=== PATIENT | male | born 1965 | race African-American/Black ===

== ENCOUNTER 2016-07-13 00:55 | Inpatient (IN) | payer OTHER ==
[2016-07-12 22:22] LABS: URINE SOURCE CLEAN CATCH
[2016-07-12 22:41] LABS: URINE APPEARANCE CLEAR; URINE BILIRUBIN NEG (NEG); URINE BLOOD NEG (NEG); URINE COLOR YELLOW; URINE GLUCOSE NEG (NEG); URINE KETONE NEG (NEG); URINE LEUKOCYTE ESTERASE NEG (NEG); URINE NITRATE NEG (NEG); URINE PROTEIN NEG (NEG); URINE UROBILINOGEN 0.2 MG/DL (NEG)
[2016-07-12 22:46] LABS: CULTURE INDICATED? NO
--- NOTE | ~2016-07-13 | CT2 ---
[facility] A Service of [facility] & [facility] RADIOLOGY TEXT RESULTS PATIENT: COLLEEN KOENIG LOCATION: C3A 328-01 : [birth year] UNIT #: [id number] AGE: [address]: Alis Erazo MD SEX: M ORDER DR: [id number] [facility] [address]. [place], [place] [address] [id number] MR#: [id number] Acc #: [id number] NAME: COLLEEN KOENIG : 1965 SEX: M STUDY DATE/TIME: 07/13/2016 3:22 UNIT: CEDOF ROOM: 77588 STUDY DESCRIPTION: CT Abd and Pelv W Cont Attending Physician: Chaitanya Patton M.D. Ordering Physician: Raphael Turner M.D. Primary Care Physician: Primary Care Physician No MEDICAL IMAGING REPORT This report is preliminary unless electronic signature is present EXAM CT abdomen and pelvis with IV contrast COMPARISON: August 13, 2015. HISTORY 50-year-old male with sharp upper abdominal pain, nausea, emesis and diarrhea for two days. The CT exam was performed with one or more of the following radiation dose reduction techniques: automatic exposure control, adjustment of mA and/or kV according to patient size, and iterative reconstruction. FINDINGS Axial CT imaging of the abdomen and pelvis was performed after administration of 100 mL of Isovue-370. Coronal and sagittal reformats were constructed. Small posterior disc protrusions at L4-5 and L5-S1. No acute fractures or suspicious osseous lesions. Top normal heart size. No acute findings in the imaged lower chest. Findings suggestive of hepatic steatosis. Hepatomegaly with hepatic length of 19.5 cm. Prior cholecystectomy. There is edema and diffuse fat stranding along the course of the pancreas with fat stranding surrounding the second portion of the duodenum as well as the third portion of the duodenum, without appreciable thickening of this bowel segment. No convincing evidence of abscess. Adrenal glands, spleen, and kidneys are without parenchymal lesions. There is questionable multifocal cortical scarring of the kidneys. No hydronephrosis or hydroureter. No renal or ureteral calculus. Urinary bladder is unremarkable. There is minimal central prostatic calcifications, nonspecific finding, perhaps related to STS. [facility] A Service of [facility] & [facility] RADIOLOGY TEXT RESULTS PATIENT: COLLEEN KOENIG LOCATION: C3A 328-01 : 65 UNIT #: [id number] AGE: [address]: Alis Erazo MD SEX: M ORDER DR: a remote prostatitis. No evidence of bowel obstruction. Appendix is normal. No pneumoperitoneum or layering free fluid. Abdominal aorta is normal in course and caliber, patency of its main branches. No evidence of venous thrombosis. IMPRESSION 1. Findings of acute pancreatitis. No evidence of abscess or other complication. 2. Hepatomegaly with hepatic steatosis. Prior cholecystectomy. 3. Small posterior disc protrusions at L4-L5 and L5-S1. 1. Dictated by... Charlie Harmon M.D. THIS IS AN ELECTRONICALLY VERIFIED REPORT Charlie Harmon M.D. at 07/19/2016 3:45 PM Lashell TD: 07/13/2016 08:29 JOB #: [id number] MEDICAL IMAGING REPORT COPY
--- NOTE | ~2016-07-13 | EKG ---
PATIENT: COLLEEN KOENIG UNIT #: [id number] Ventricular Rate: 64 BPM Atrial Rate: 64 BPM P-R Interval: 140 ms QRS Duration: 102 ms Q-T Interval: 412 ms QTC Calculation(Bezet): 425 ms P [place]: 49 degrees Calculated R [place]: 3 degrees Calculated T [place]: -3 degrees Diagnosis Line: Normal sinus rhythm Diagnosis Line: Non Specific ST Changes- Abnormality Diagnosis Line: Abnormal ECG Diagnosis Line: When compared with ECG of 25-APR-2015 10:31, Diagnosis Line: T wave inversion no longer evident in Lateral Diagnosis Line: leads Diagnosis Line: Confirmed by ANDREA DORANTES MD ([id number]) on Diagnosis Line: 07/13/2016 12:01:09 PM INTERPRETING : KENDRICK
--- NOTE | ~2016-07-13 | HP ---
Unit #: [id number] #: [id number] Patient: COLLEEN KOENIG [id number] [address] [place], [place] [address] [id number] I MR#: [id number] NAME: COLLEEN KOENIG ROOM: 65601 Age: 50 Sex: M Admission Date: 07/13/2016 : 1965 Attending Physician: Alis Erazo M.D. Primary Care Physician: No Primary Care Physician HISTORY AND PHYSICAL REASON FOR ADMISSION Abdominal pain. Intractable nausea and vomiting times four days. HISTORY OF PRESENT ILLNESS The patient is a 50-year-old male with an underlying history of alcohol abuse, hypertension, as well as recurrent hospital admissions secondary to pancreatitis. He presents secondary to intractable nausea, vomiting and abdominal pain for the past four to five days. He states that he was otherwise in his usual state of health approximately a week ago, when he began developing acute symptoms. He also states to me that he has not drank any alcohol in the past seven days. He in his own recollection, states that he is regularly taking his blood pressure medications, including Norvasc and hydralazine on a regular basis, although his systolic has consistently remained greater than 180 to 190 throughout his emergency room course thus far. He does not check his blood pressure at home. PAST MEDICAL HISTORY 1. Hospital admission in 2014 secondary to similar circumstance. 2. Alcoholic pancreatitis. 3. Hypertension. 4. Cholecystectomy in the past. 5. Chronic alcohol abuse. 6. Tobacco abuse. PAST SURGICAL HISTORY Cholecystectomy. SOCIAL HISTORY The patient resides at home alone. Positive tobacco use, one pack of cigarettes per day. Positive alcohol consumption. Works in heavy machinery. FAMILY HISTORY Mother endstage renal disease, dialysis. ALLERGIES Per report Dilaudid causes hallucinations. CURRENT HOME MEDICATIONS Medication reconciliation currently being verified, including Hydralazine Unit #: [id number] #: [id number] Patient: COLLEEN KOENIG and Arnel I believe. REVIEW OF SYSTEMS Please see history of present illness. Twelve points otherwise negative except for those positives noted in the history of present illness. PHYSICAL EXAMINATION GENERAL: The patient is a 50-year-old male lying in no acute distress. VITALS: At the time of admission, temperature 97.9, pulse 79, respiratory rate 16, blood pressure 170/110. HEENT: Atraumatic, normocephalic. Ears, tympanic membranes do not reveal any erythema or injection. NECK: Supple. LUNGS: Clear. HEART: S1 and S2 without murmur. ABDOMEN: Distension noted. Tenderness to palpation in the epigastric area. No rebound. No guarding. EXTREMITIES: Lower extremities no evidence of lower extremity edema. No calf tenderness. NEUROLOGIC: The patient is alert and oriented times three. He does have a slightly slower affect. He has just received Dilaudid per protocol while here in the emergency room. DIAGNOSTIC STUDIES LABORATORY: Initial studies include troponin times two which is negative. Lipase level 286, potassium 3.3, LFTs are elevated. CBC shows white blood cell count 1.9, hemoglobin 14.6. EMERGENCY ROOM COURSE The patient has received hydralazine p.o., clonidine p.o. 0.2 mg as well as hydralazine 10 mg IV. He has also received morphine, Zofran and Dilaudid. It should be noted that Dilaudid is a questionable allergy as I see it on some previous records. However, he denies, but I do see some reports of hallucinations. He states that it is the only thing that does help him and, therefore, that was administered previously. INITIAL ADMISSION DIAGNOSES 1. Acute pancreatitis, likely secondary to alcohol consumption. 2. Alcohol abuse. 3. Intractable nausea and vomiting. 4. Abdominal pain. 5. Transaminitis, likely secondary to alcohol abuse. 6. Hypokalemia. 7. Hypertensive urgency. PLAN Admission to telemetry floor. IV fluids for PPI and b.i.d. dosing. Hydralazine 50 mg p.o. q.8 h. to be initiated. Norvasc 10 mg to be initiated with 10 mg of IV hydralazine p.r.n. I will also place him on Librium scheduled as well as Ativan p.r.n. For now will discontinue his Dilaudid and place him only on morphine 4 mg IV q.4 h. p.r.n. and electrolytes will appropriately be monitored. He will have routine laboratory studies. I did discuss with him in regard to seeking treatment in regard to rehab Unit #: [id number] #: [id number] Patient: COLLEEN KOENIG or further care in regard to alcohol abuse. He says he will consider it. Will watch for evidence of any DTs, to which he states that he has been successful and has quit drinking for weeks at a time with no evidence of any DTs as an outpatient, but we will continue to follow. He is full code. All questions answered. Dictated by Cheyenne Rene/festus TD: 07/13/2016 14:51 JOB #: [id number] HISTORY AND PHYSICAL X Alis Erazo MD X HISTORY AND PHYSICAL
--- NOTE | ~2016-07-13 | DS ---
Unit #: [id number] #: [id number] Patient: COLLEEN KOENIG [id number] [address] [place], [place] [address] [id number] I MR#: [id number] NAME: COLLEEN KOENIG ROOM: 328 Age: 50 Sex: M Admission Date: 07/13/2016 : 1965 Discharge Date: 07/15/2016 Attending Physician: Alis Erazo M.D. Primary Care Physician: No Primary Care Physician DISCHARGE SUMMARY REASON FOR ADMISSION Abdominal pain, intractable nausea and vomiting x4. HISTORY OF PRESENT ILLNESS/HOSPITAL COURSE The patient is a 50-year-old male with underlying history of alcohol abuse, hypertension poorly controlled, questionable compliance with history of recurrent hospital admission secondary to pancreatitis, likely secondary to alcoholic etiology. Presented with similar circumstance including intractable nausea and vomiting, abdominal pain. While he was admitted, he was placed on IV fluids, clear diet initially which was gradually transitioned into regular diet. He was appropriately controlled with symptom management including pain control. Prophylactically, he was placed on Librium as well as Ativan. However, he did not show any evidence of any DTs or any withdrawals while he was here in the hospital. He states that he has not drank or consumed alcohol in greater than a month. He does have a prior history of hypertension to which I question his compliance with medications. His blood pressure was accelerated at most times through hospital course. At one point in time, systolic was close to 200 with diastolic in the 120-130 range. His blood pressure medication regimen has been altered and please see below for details. At time of discharge, his lipase currently is 66. He has tolerated diet well. He denies any nausea, vomiting. No abdominal pain. He is currently asymptomatic and he appears stable to be discharged home. I have asked him to follow up with his primary care physician in the next 7-10 days for repeat CMP as well as lipase level. I have also filled out FMLA paperwork in regard to its consideration that may require episodic flare ups that will require acute inpatient hospital evaluation. I have also asked him to followup with his family physician for FMLA paperwork to be filled out moving forward. FINAL DISCHARGE DIAGNOSES 1. Abdominal pain. 2. Acute pancreatitis, likely alcoholic in origin. 3. Alcohol abuse. 4. Accelerated hypertension. Unit #: [id number] #: [id number] Patient: COLLEEN KOENIG 5. Noncompliance. 6. Obesity. DISCHARGE MEDICATIONS 1. Hydralazine 100 mg p.o. q.8. 2. Norvasc 10 mg p.o. daily. 3. Clonidine 0.2 mg p.o. b.i.d. 4. Tylenol 650 mg p.o. q.6 p.r.n. DISCHARGE CONDITION Stable. DISCHARGE DISPOSITION Home. Dictated by... Cheyenne Rene/alex TD: 07/16/2016 08:58 JOB #: [id number] DISCHARGE SUMMARY X Alis Erazo MD X DISCHARGE SUMMARY
[~2016-07-13 00:55] MED LIST: FLEXERIL10 MG PO; HYDRALAZINE HCL25 MG PO; HYDROCHLOROTHIA25 MG PO; MOBIC15 MG PO; MULTI VITAMIN1 EACH PO; NORVASC10 MG PO; PROTONIX PO
[2016-07-13 01:49] LABS: BASOPHIL# 0.1 X10e3 (0-0.3); BASOPHIL% 0.6 % (0-2.5); EOSINOPHIL# 0.2 X10e3 (0-0.7); EOSINOPHIL% 1.5 % (0.0-7.0); HEMATOCRIT 43.7 % (38.0-50.0); HEMOGLOBIN 14.6 gm/dL (13.0-16.0); LYMPHOCYTE# 2.7 X10e3 (1.0-3.5); LYMPHOCYTE% 22.9 % (17.0-45.0); MEAN CELL VOLUME 98.3 FL (83-96); MEAN CORPUSCULAR HEMOGLOBIN 32.7 PG (28-34); MEAN CORPUSCULAR HGB CONC 33.3 g/dL (30-36); MEAN PLATELET VOLUME 8.1 FL (6.5-11.5); MONOCYTE# 0.9 X10e3 (0-1.0); MONOCYTE% 7.6 % (3.0-12.0); NEUTROPHIL% 67.4 % (40-75); PLATELET COUNT 194 X10e3 (140-420); RED BLOOD COUNT 4.45 X10e (3.90-5.60); RED CELL DISTRIBUTION WIDTH 14.8 % (11.0-15.5); WHITE BLOOD COUNT 11.9 X10e3 (4.0-10.5)
[2016-07-13 01:55] LABS: DIFF IND NO
[2016-07-13 02:25] LABS: POC - CKMB <1.0 ng/mL (0.0-7.9); POC - TROPONIN <0.05 ng/mL (<=0.05)
[2016-07-13 02:34] LABS: ALBUMIN SERUM 3.9 g/dL (3.5-5.0); ALKALINE PHOSPHATASE 76 U/L (32-92); ALT (SGPT) 96 U/L (10-40); AST (SGOT) 128 U/L (10-42); BILIRUBIN, DIRECT 0.1 mg/dL (0.0-0.2); BILIRUBIN,INDIRECT 0.4 mg/dL (0.0-0.9); BILIRUBIN,TOTAL 0.5 mg/dL (0.2-2.0); BLOOD UREA NITROGEN 12 mg/dL (9-23); CALCIUM SERUM 8.8 mg/dL (8.4-10.2); CARBON DIOXIDE 21 mmol/L (22-31); CHLORIDE 104 mmol/L (100-111); CREATININE SERUM 1.1 mg/dL (0.6-1.4); GLOM FILT RATE Estimated ABOVE60 mL/min (>60); GLUCOSE FASTING 104 mg/dL (70-110); LIPASE 286 U/L (22-51); POTASSIUM 3.3 mmol/L (3.5-5.1); PROTEIN TOTAL SERUM 7.2 g/dL (6.0-8.3); SODIUM 138 mmol/L (135-145)
[2016-07-13 05:51] LABS: POC - CKMB <1.0 ng/mL (0.0-7.9); POC - TROPONIN <0.05 ng/mL (<=0.05)
[2016-07-13 15:09] LABS: AMPHETAMINE NEG (NEG); BARBITURATES NEG (NEG); BENZODIAZEPINES NEG (NEG); COCAINE NEG (NEG); MARIJUANA NEG (NEG); OPIATES POS (NEG); TRICYCLIC ANTIDEPRESSANTS NEG (NEG); U METHADONE NEG (NEG)
[2016-07-14 05:19] LABS: HEMATOCRIT 40.6 % (38.0-50.0); HEMOGLOBIN 13.8 gm/dL (13.0-16.0); MEAN CELL VOLUME 97.6 FL (83-96); MEAN CORPUSCULAR HEMOGLOBIN 33.2 PG (28-34); MEAN PLATELET VOLUME 8.1 FL (6.5-11.5); RED BLOOD COUNT 4.16 X10e (3.90-5.60); RED CELL DISTRIBUTION WIDTH 14.7 % (11.0-15.5); WHITE BLOOD COUNT 12.4 X10e3 (4.0-10.5)
[2016-07-14 06:29] LABS: ALBUMIN SERUM 3.6 g/dL (3.5-5.0); ALKALINE PHOSPHATASE 91 U/L (32-92); ALT (SGPT) 85 U/L (10-40); AST (SGOT) 76 U/L (10-42); BILIRUBIN,TOTAL 1.3 mg/dL (0.2-2.0); BLOOD UREA NITROGEN 5 mg/dL (9-23); BUN/CREATININE RATIO 6.25; CALCIUM SERUM 8.6 mg/dL (8.4-10.2); CARBON DIOXIDE 22 mmol/L (22-31); CHLORIDE 99 mmol/L (100-111); CHOLESTEROL 145 mg/dL (0-200); CREATININE SERUM 0.8 mg/dL (0.6-1.4); GLOM FILT RATE Estimated ABOVE60 mL/min (>60); GLUCOSE FASTING 121 mg/dL (70-110); HDL CHOLESTEROL 94 mg/dL (29-75); LDL CHOLESTEROL 40 mg/dL (-130); LDL/HDL RATIO 0 RATIO (0-4); LIPASE 127 U/L (22-51); POTASSIUM 3.3 mmol/L (3.5-5.1); PROTEIN TOTAL SERUM 6.7 g/dL (6.0-8.3); SODIUM 131 mmol/L (135-145); TRIGLYCERIDES 53 mg/dL (10-160)
[2016-07-15 07:15] LABS: ALBUMIN SERUM 3.2 g/dL (3.5-5.0); ALKALINE PHOSPHATASE 69 U/L (32-92); ALT (SGPT) 50 U/L (10-40); AST (SGOT) 36 U/L (10-42); BILIRUBIN,TOTAL 0.8 mg/dL (0.2-2.0); BLOOD UREA NITROGEN 8 mg/dL (9-23); CALCIUM SERUM 8.3 mg/dL (8.4-10.2); CARBON DIOXIDE 23 mmol/L (22-31); CHLORIDE 106 mmol/L (100-111); GLOM FILT RATE Estimated ABOVE60 mL/min (>60); GLUCOSE FASTING 91 mg/dL (70-110); LIPASE 66 U/L (22-51); POTASSIUM 3.9 mmol/L (3.5-5.1); PROTEIN TOTAL SERUM 6.3 g/dL (6.0-8.3); SODIUM 134 mmol/L (135-145)
[2016-07-15] MEDS ORDERED: ACETAMINOPHEN650 M3 PO (09:54)
[2016-07-15] MEDS ORDERED: HYDRALAZINE HC100 MG PO (09:55)
[2016-07-15] MEDS ORDERED: AMLODIPINE BESY10 MG PO (09:55)
[2016-07-15] MEDS ORDERED: CLONIDINE PO (09:56)
== END 2016-07-15 10:25 | disposition home or self-care (01) | DRG 440 ==
LOC: CED 00:55 → CEDOF 05:56 → C3A PCU 20:22
PROVIDERS: Emergency Medicine; Family Medicine
DX: K85.20 Alcohol induced acute pancreatitis without necrosis or infection (principal); I10 Essential (primary) hypertension; Z91.14 Patient's other noncompliance with medication regimen; F10.10 Alcohol abuse, uncomplicated; F17.210 Nicotine dependence, cigarettes, uncomplicated; R74.0 Nonspecific elevation of levels of transaminase and lactic acid dehydrogenase [LDH]; E87.6 Hypokalemia; I16.0 Hypertensive urgency; E66.9 Obesity, unspecified; R19.7 Diarrhea, unspecified; Z91.19 Patient's noncompliance with other medical treatment and regimen
CPT/HCPCS: 36415; 74177; 80048; 80053; 80061; 80076; 80307; 81003; 82553; 83690; 84484; 85025; 85027; 93005; 96361; 96374; 96375; 99285; C9113; J0360; J1170; J1650; J2270; J2405; Q9967

== ENCOUNTER 2016-09-27 12:39 | Inpatient (IN) | payer OTHER ==
--- NOTE | ~2016-09-27 | DS ---
Unit #: [id number] #: [id number] Patient: COLLEEN KOENIG [id number] [address] [place], [place] [address] [id number] I MR#: [id number] NAME: COLLEEN KOENIG ROOM: 55 Age: 50 Sex: M Admission Date: 09/27/2016 : 1965 Discharge Date: 09/30/2016 Attending Physician: Jeovanny Sandhu M.D. Primary Care Physician: Jesse Gong M.D. DISCHARGE SUMMARY ADMITTING DIAGNOSES 1. Pancreatitis, secondary to alcoholism. 2. History of hypertension. DISCHARGE DIAGNOSES 1. Pancreatitis, secondary to alcoholism. 2. History of hypertension. HISTORY OF PRESENTING ILLNESS The patient is a 50-year-old -[place] gentleman with a past medical history of alcohol abuse, who presented to the hospital with a chief complaint of abdominal pain. HOSPITAL COURSE In the initial evaluation with imaging, he was noted to have acute pancreatitis. He was kept NPO, started on IV fluids, p.r.n. analgesics. Slowly, his diet was advanced. He was tolerating a solid diet well. Counseled him to quit drinking alcohol. He is doing clinically better. Counseled him to quit drinking alcohol. Will discharge him home today. PHYSICAL EXAMINATION On the day of the discharge, his physical examination: VITAL SIGNS: Temperature 98.5, pulse rate 65, respirations 18, blood pressure 142/83. GENERAL: Patient is alert, oriented x3, lying in the bed in no acute distress. HEENT: Normocephalic and atraumatic. No icterus. PERRLA. Extraocular muscles intact. NECK: Supple. No JVD. HEART: S1, S2. Regular rate and rhythm. ABDOMEN: Soft, nontender. Bowel sounds present. EXTREMITIES: No edema. Normal pulses. DISCHARGE MEDICATIONS 1. Thiamine 100 mg p.o. daily. 2. Folic acid 1 mg p.o. daily. 3. Multivitamin one capsule p.o. daily. 4. Nicotine 21 mg topical patch daily for two weeks. 5. Amlodipine/benazepril (Lotrel) 5/10 two caps p.o. daily. 6. Protonix 40 mg daily. Counseled him to quit drinking alcohol and follow with his primary care in one to two weeks. Unit #: [id number] #: [id number] Patient: COLLEEN KOENIG Total time spent in his care, 28 minutes. Dictated by... Cheyenne Plasencia TD: 09/30/2016 16:30 JOB #: [id number] DISCHARGE SUMMARY Page 1 of 1 X X DISCHARGE SUMMARY
--- NOTE | ~2016-09-27 | CT2 ---
[facility] A Service of [facility] & [facility] RADIOLOGY TEXT RESULTS PATIENT: COLLEEN KOENIG LOCATION: [facility] 557-01 : [birth year] UNIT #: [id number] AGE: [address]: Jeovanny Sandhu MD SEX: M ORDER DR: [id number] [facility] [address] [place], [place] [address] [id number] I MR#: [id number] Acc #: [id number] NAME: COLLEEN KOENIG : 1965 SEX: M STUDY DATE/TIME: 09/27/2016 17:09 UNIT: CEDOF ROOM: 28855 STUDY DESCRIPTION: CT Abd and Pelv W Cont Attending Physician: Althea Clark M.D. Ordering Physician: Pb Chew D.O. Primary Care Physician: Jesse Gong M.D. MEDICAL IMAGING REPORT This report is preliminary unless electronic signature is present EXAM CT abdomen and pelvis with contrast, 09/27/2016 HISTORY 50-year-old male in the ED complaining of 1-day history of abdomen pain, nausea and diarrhea. He has a past history of recurrent acute pancreatitis. TECHNIQUE CT examination of the abdomen and pelvis was performed with IV contrast. GI contrast was not ordered. This CT exam was performed with one or more of the following radiation dose reduction techniques: Automatic exposure control, adjustment of mA and/or kV according to patient size, and iterative reconstruction. COMPARISON CT abdomen/pelvis, 07/13/2016, 08/13/2015 and 06/16/2014. FINDINGS ABDOMEN FINDINGS: The examination shows mild inflammatory soft tissue stranding surrounding the tail of the pancreas, which shows mildly irregular margins as well as some likely parenchymal edema at the pancreatic tail tip. Similar findings were present on 07/13/2016, and more severe diffuse pancreatitis was present on 04/15/2015. The findings are compatible with recurrent acute pancreatitis involving the pancreatic tail. The head of the pancreas and pancreatic body appear normal. No evidence of fluid collection, pancreatic necrosis or visible pancreatic duct dilatation. Gallbladder is surgically absent, and there is no bile duct dilatation. Mild hepatomegaly and mild diffuse hepatic steatosis. Spleen is normal. Both kidneys are negative with no evidence of urinary obstruction. [facility] A Service of [facility] & [facility] RADIOLOGY TEXT RESULTS PATIENT: COLLEEN KOENIG LOCATION: C5B 557-01 : [birth year] UNIT #: [id number] AGE: [address]: Jeovanny Sandhu MD SEX: M ORDER DR: Small bowel and colon are normal in caliber and appearance. The appendix is normal. Normal-caliber abdominal aorta. PELVIS FINDINGS: Bladder, prostate and rectum are within normal limits. Limited lung base images show no active disease in the lower chest. IMPRESSION 1. CT findings compatible with mild acute pancreatitis involving the pancreatic tail. This is recurrent when compared with several prior studies as detailed above. No evidence of significant fluid collection, pancreatic necrosis or pancreatic duct dilatation. 2. Cholecystectomy. No bile duct dilatation. 3. Remainder of the exam is negative. The appendix is normal. Dictated by... Iker Tucker M.D. THIS IS AN ELECTRONICALLY VERIFIED REPORT Iker Tucker M.D. at 09/28/2016 10:15 AM GABRIELLE/nithin TD: 09/27/2016 23:12 JOB #: [id number] MEDICAL IMAGING REPORT Page 1 of 1 COPY
--- NOTE | ~2016-09-27 | HP ---
Unit #: [id number] #: [id number] Patient: COLLEEN KOENIG [id number] [address] [place], [place] [address] [id number] MR#: [id number] NAME: COLLEEN KOENIG ROOM: Age: 50 Sex: M Admission Date: 09/27/2016 : 1965 Attending Physician: Pb Chew D.O. Primary Care Physician: Jesse Gong M.D. HISTORY AND PHYSICAL CHIEF COMPLAINT Abdominal pain. HISTORY OF PRESENT ILLNESS The patient is a 50-year-old male with a history of alcohol abuse, hypertension, and recurrent chronic pancreatitis, who presented to the emergency room with abdominal pain that started last night. The patient drinks alcohol every other day, and the last alcohol was on Tuesday. The patient drinks a pint of alcohol. The patient complains of sharp, epigastric, abdominal pain, nonradiating, and is associated with nausea and vomiting. The patient had a CT of the abdomen and pelvis that showed mildly acute pancreatitis, recurrent, at the pancreatic tail. The patient is being admitted for the above reasons. He denies any fevers or chills. PAST MEDICAL HISTORY 1. Alcoholic pancreatitis. 2. Hypertension. PAST SURGICAL HISTORY Cholecystectomy. SOCIAL HISTORY The patient resides at home alone. Positive tobacco use of one pack per day and alcohol every other day. He works in heavy machinery. FAMILY HISTORY Mother with end-stage renal disease. ALLERGIES Dilaudid (hallucinations). HOME MEDICATIONS 1. Tylenol. 2. Norvasc. 3. Hydralazine. 4. Catapres. REVIEW OF SYSTEMS A 14-point review of systems was performed and only pertinent positive findings are described above. The remaining are negative. PHYSICAL EXAMINATION GENERAL: Patient is lying in bed not in acute distress. VITAL SIGNS: Temperature 98, pulse 83, respiratory rate 16, blood Unit #: [id number] #: [id number] Patient: COLLEEN KOENIG pressure 196/111, and saturating 100% on room air. HEENT: Head atraumatic, normocephalic. Pupils equal, round, and reactive to light and accommodation. Extraocular movements are intact. Dry mucous membranes. NECK: Supple. LUNGS: Clear. HEART: Regular rate and rhythm. ABDOMEN: Soft. Positive bowel sounds. Tenderness in the epigastric region. No rebound or guarding. EXTREMITIES: No evidence of cyanosis, clubbing, or edema. NEUROLOGIC: Alert, awake, and oriented. No gross focal motor deficit. DIAGNOSTIC STUDIES LABORATORY: Glucose 156, BUN 7, creatinine 1, sodium 142, potassium 2.6, chloride 100, bicarb 27, calcium 8.9, magnesium 1.6, total protein 7.7, albumin 4.4, AST 46, ALT 26, and alkaline phosphatase 68. Lipase 52. Alcohol level is 5. WBC 7.6, hemoglobin 14.7, hematocrit 43.1, and platelets 197,000. Urinalysis shows 1+ protein. IMAGING: CT of the abdomen shows mildly acute pancreatitis, recurrent, at the tail of the pancreas. ASSESSMENT 1. Pancreatitis, alcoholic. 2. Alcohol abuse. 3. Hypokalemia. PLAN Admit the patient to inpatient with telemetry. Continue with bowel rest with clear liquids and IV fluids of normal saline at 125 mL/hour. Pain control with morphine. CIWA protocol. Might consider psychiatric evaluation with the recurrent admissions for alcoholic pancreatitis. Repeat the labs again in the morning. Replace the potassium per protocol. Further recommendations will follow. Dictated by Cheyenne Harman TD: 09/27/2016 20:31 JOB #: [id number] HISTORY AND PHYSICAL Page 1 of 1 X X HISTORY AND PHYSICAL
[~2016-09-27 12:39] MED LIST changes: +ACETAMINOPHEN650 M3 PO; +AMLODIPINE BESY10 MG PO; +CLONIDINE PO; +HYDRALAZINE HC100 MG PO
[2016-09-27 13:32] LABS: BASOPHIL# 0.1 X10e3 (0-0.3); BASOPHIL% 0.7 % (0-2.5); EOSINOPHIL% 0.1 % (0.0-7.0); HEMATOCRIT 43.1 % (38.0-50.0); HEMOGLOBIN 14.7 gm/dL (13.0-16.0); LYMPHOCYTE# 1.9 X10e3 (1.0-3.5); LYMPHOCYTE% 24.9 % (17.0-45.0); MEAN CORPUSCULAR HEMOGLOBIN 34.8 PG (28-34); MEAN CORPUSCULAR HGB CONC 34.1 g/dL (30-36); MEAN PLATELET VOLUME 7.9 FL (6.5-11.5); MONOCYTE# 0.4 X10e3 (0-1.0); MONOCYTE% 5.9 % (3.0-12.0); NEUTROPHIL# 5.2 X10e3 (1.5-7.1); NEUTROPHIL% 68.4 % (40-75); PLATELET COUNT 197 X10e3 (140-420); RED BLOOD COUNT 4.23 X10e (3.90-5.60); RED CELL DISTRIBUTION WIDTH 15.2 % (11.0-15.5); WHITE BLOOD COUNT 7.6 X10e3 (4.0-10.5)
[2016-09-27 13:45] LABS: DIFF IND NO
[2016-09-27 13:49] LABS: URINE SOURCE CLEAN CATCH
[2016-09-27 13:55] LABS: URINE APPEARANCE CLEAR; URINE BILIRUBIN NEG (NEG); URINE BLOOD NEG (NEG); URINE COLOR YELLOW; URINE GLUCOSE NEG (NEG); URINE KETONE TRACE (NEG); URINE LEUKOCYTE ESTERASE NEG (NEG); URINE NITRATE NEG (NEG); URINE PROTEIN 1+ (NEG); URINE SPECIFIC GRAVITY 1.021 (1.003-1.035)
[2016-09-27 13:57] LABS: URBCS1 AUWI 0-2 /[HPF] (0-2); URINE BACTERIA AUWI NEG (NEGATIVE); URINE SQUAMOUS EPITHELIAL CELL NONE SEEN /[HPF]; UWBCS1 AUWI 0-2 (0-5)
[2016-09-27 14:01] LABS: CULTURE INDICATED? NO
[2016-09-27 14:07] LABS: ALBUMIN SERUM 4.4 g/dL (3.5-5.0); BILIRUBIN, DIRECT 0.2 mg/dL (0.0-0.2); BILIRUBIN,INDIRECT 0.6 mg/dL (0.0-0.9); BILIRUBIN,TOTAL 0.8 mg/dL (0.2-2.0); CALCIUM SERUM 8.9 mg/dL (8.4-10.2); GLOM FILT RATE Estimated 101.3 mL/min (>60); PROTEIN TOTAL SERUM 7.7 g/dL (6.0-8.3)
[2016-09-27 14:09] LABS: POTASSIUM 2.6 mmol/L (3.5-5.1)
[2016-09-27] MEDS ORDERED: PROTONIX PO (19:16)
[2016-09-27] MEDS ORDERED: HYDROCHLOROTHIA25 MG PO (19:16)
[2016-09-27] MEDS ORDERED: AMLODIPINE-BEN1 EAC3 PO (19:16)
[2016-09-27] MEDS ORDERED: HYDRALAZINE HCL25 MG PO (19:17)
[2016-09-27] MEDS ORDERED: CLONIDINE PO (19:18)
[2016-09-28 07:52] LABS: BASOPHIL% 0.5 % (0-2.5); EOSINOPHIL# 0.2 X10e3 (0-0.7); EOSINOPHIL% 2.6 % (0.0-7.0); HEMOGLOBIN 14.6 gm/dL (13.0-16.0); LYMPHOCYTE# 2.2 X10e3 (1.0-3.5); MEAN CELL VOLUME 103.9 FL (83-96); MEAN CORPUSCULAR HEMOGLOBIN 35.2 PG (28-34); MEAN CORPUSCULAR HGB CONC 33.8 g/dL (30-36); MEAN PLATELET VOLUME 8.5 FL (6.5-11.5); MONOCYTE# 0.6 X10e3 (0-1.0); MONOCYTE% 6.9 % (3.0-12.0); NEUTROPHIL# 6.1 X10e3 (1.5-7.1); PLATELET COUNT 183 X10e3 (140-420); RED BLOOD COUNT 4.14 X10e (3.90-5.60); RED CELL DISTRIBUTION WIDTH 15.5 % (11.0-15.5); WHITE BLOOD COUNT 9.3 X10e3 (4.0-10.5)
[2016-09-28 07:54] LABS: DIFF IND NO
[2016-09-28 09:10] LABS: BUN/CREATININE RATIO 6.66; CALCIUM SERUM 8.7 mg/dL (8.4-10.2); CREATININE SERUM 0.9 mg/dL (0.6-1.4)
[2016-09-28 09:18] LABS: POTASSIUM 2.7 mmol/L (3.5-5.1)
[2016-09-29 07:57] LABS: BLOOD UREA NITROGEN 7 mg/dL (9-23); BUN/CREATININE RATIO 8.75; CALCIUM SERUM 8.4 mg/dL (8.4-10.2); CARBON DIOXIDE 25 mmol/L (22-31); CHLORIDE 99 mmol/L (100-111); CHOLESTEROL 187 mg/dL (0-200); CREATININE SERUM 0.8 mg/dL (0.6-1.4); GLOM FILT RATE Estimated 120.8 mL/min (>60); GLUCOSE FASTING 146 mg/dL (70-110); HDL CHOLESTEROL >135 mg/dL (29-75); LDL CHOLESTEROL 41 mg/dL (-130); LDL/HDL RATIO 0 RATIO (0-4); MAGNESIUM 1.4 mg/dL (1.6-3.0); POTASSIUM 3.7 mmol/L (3.5-5.1); SODIUM 133 mmol/L (135-145); TRIGLYCERIDES 55 mg/dL (10-160)
[2016-09-30 06:12] LABS: HEMATOCRIT 37.5 % (38.0-50.0); MEAN CELL VOLUME 104.2 FL (83-96); MEAN CORPUSCULAR HEMOGLOBIN 34.9 PG (28-34); MEAN CORPUSCULAR HGB CONC 33.5 g/dL (30-36); MEAN PLATELET VOLUME 8.8 FL (6.5-11.5); RED BLOOD COUNT 3.6 X10e (3.90-5.60); RED CELL DISTRIBUTION WIDTH 14.8 % (11.0-15.5); WHITE BLOOD COUNT 7.3 X10e3 (4.0-10.5)
[2016-09-30 06:13] LABS: HEMOGLOBIN 12.6 gm/dL (13.0-16.0)
[2016-09-30 08:01] LABS: CALCIUM SERUM 8.6 mg/dL (8.4-10.2); CREATININE SERUM 0.8 mg/dL (0.6-1.4); GLOM FILT RATE Estimated 120.8 mL/min (>60); MAGNESIUM 1.6 mg/dL (1.6-3.0); POTASSIUM 3.4 mmol/L (3.5-5.1)
[2016-09-30] MEDS ORDERED: NICOTINE PATCH1 EAC1 TD (18:59)
[2016-09-30] MEDS ORDERED: FOLIC ACID1 MG PO (19:00)
[2016-09-30] MEDS ORDERED: THIAMINE HCL100 M2 PO (19:00)
== END 2016-09-30 19:45 | disposition home or self-care (01) | DRG 439 ==
LOC: CED 12:39 → CEDOF 19:00 → C5B 19:00 → CED 19:37 → CEDOF 19:37 → C5B 09-28 02:12 → CEDOF 09-28 02:12 → C5B 09-28 08:01
PROVIDERS: Internal Medicine; Nurse Practitioner
DX: K85.20 Alcohol induced acute pancreatitis without necrosis or infection (principal); E87.1 Hypo-osmolality and hyponatremia; E83.42 Hypomagnesemia; I10 Essential (primary) hypertension; K86.0 Alcohol-induced chronic pancreatitis; Z90.49 Acquired absence of other specified parts of digestive tract; F17.210 Nicotine dependence, cigarettes, uncomplicated; E87.6 Hypokalemia; Y90.0 Blood alcohol level of less than 20 mg/100 ml; F10.20 Alcohol dependence, uncomplicated
CPT/HCPCS: 36415; 74177; 80048; 80061; 80076; 81003; 83690; 83735; 84132; 85025; 85027; 94760; 96361; 96374; 96375; 99285; G0480; J1650; J2270; J2405; J3475; Q9967